=== PATIENT | male | born 1960 | race Caucasian/White ===

== ENCOUNTER 2017-04-07 17:58 | Emergency (ER) | payer BC, OTHER ==
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
[2017-04-07 18:23] VITALS: TEMP 98.2; BMI 35.3
[2017-04-07 18:41] VITALS: BP 126/83; PULSE 70
[2017-04-07 18:51] LABS: INR 1.13 (0.82-1.09); PROTHROMBIN TIME (PATIENT) 12.6 SEC (10.2-13.0)
[2017-04-07 18:53] LABS: BASOPHIL 0.3 % (0-2.0); EOSINOPHIL 3.1 % (0-4.5); MCH 29.9 pg (25.7-33.7); MCHC 34.5 g/dl (32.0-35.9); MEAN CELL VOLUME 86.7 fl (80-96); MEAN PLT VOLUME 8.5 fl (7.5-11.1); NEUTROPHILS 61.3 % (42.8-82.8); PLATELET COUNT 209 K/MM3 (134-434); RDW 12.7 % (11.9-15.9); WHITE BLOOD COUNT 6.9 K/mm3 (4.0-10.8)
[2017-04-07 18:57] LABS: ALBUMIN 4.2 g/dl (3.5-5.0); ALK PHOS 56 U/L (32-92); ANION GAP 8 (8-16); BILIRUBIN,TOTAL 0.5 mg/dl (0.2-1.0); CALCIUM 9.1 mg/dl (8.4-10.2); CO2 24 mmol/L (22-28); CREATININE 1.1 mg/dl (0.6-1.3); GLUCOSE,RANDOM 101 mg/dl (74-106); SGOT/AST 34 U/L (10-42); SGPT/ALT 28 U/L (10-40); TOT PROT 6.7 g/dl (6.4-8.3)
--- NOTE | 2017-04-07 19:04 | PDOC ---
*Physical Exam - Vital Signs Last Vital Signs Temp Pulse Resp BP Pulse Ox 98.2 F 70 15 126/83 97 04/07/17 18:01 04/07/17 18:40 04/07/17 18:40 04/07/17 18:40 04/07/17 18:40 ED Treatment Course - LABORATORY CBC & Chemistry Diagram: 04/07/17 18:20 04/07/17 18:20 - ADDITIONAL ORDERS Additional order review: Laboratory Results 04/07/17 04/07/17 18:20 18:20 PT with INR 12.6 INR 1.13 Sodium 135 L Potassium 3.3 L Chloride 103 Carbon Dioxide 24 Anion Gap 8 BUN 19 H D Creatinine 1.1 Creat Clearance w eGFR > 60 Random Glucose 101 Calcium 9.1 Total Bilirubin 0.5 D AST 34 D ALT 28 Alkaline Phosphatase 56 Total Protein 6.7 Albumin 4.2 04/07/17 18:20 RBC 4.99 MCV 86.7 MCHC 34.5 RDW 12.7 MPV 8.5 D Neutrophils % 61.3 Lymphocytes % 28.5 Monocytes % 6.8 Eosinophils % 3.1 Basophils % 0.3 Progress Note - Progress Note Progress Note: Care of this patient was transferred to al from Dr. Garrett at 1900 hrs. Patient is a 57-year-old male with history of hypertension and anxiety. Patient had an anxiety attack that was associated with some palpitations and a feeling of not feeling well. 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 Patient took his antianxiety medication here in the emergency room and now feels much better. Patient had a cardiogram that showed normal sinus rhythm at a rate of [address] abnormalities but no acute ST-T wave changes. Patient had a workup that was unremarkable including normal cardiac enzymes and troponin Patient will be discharged and follow-up with his primary care doctor *DC/Admit/Observation/Transfer Diagnosis at time of Disposition: Palpitations, Anxiety - Discharge Dispostion Disposition: HOME Condition at time of disposition: Stable - Patient Instructions Additional Instructions: Return to the emergency department immediately with ANY new, persistent or worsening symptoms. Continue any medications as previously prescribed by your physician. You should follow up with your primary doctor as soon as possible regarding today's emergency department visit. . Please make sure your doctor reviews the results of your emergency evaluation. Thank you for coming to the Emergency Department today for your care. It was a pleasure to see you today. Please note that your evaluation is INCOMPLETE until you follow-up with your doctor.
[2017-04-07 19:22] LABS: TROPONIN I < 0.03 ng/ml (0.00-0.05)
--- NOTE | 2017-04-08 10:48 | EKG ---
Test Reason : Blood Pressure : / mmHG Vent. Rate : 072 BPM Atrial Rate : 072 BPM P-R Int : 154 ms QRS Dur : 106 ms QT Int : 412 ms P-R-T Axes : 024 057 031 degrees QTc Int : 451 ms NORMAL SINUS RHYTHM NONSPECIFIC ST ABNORMALITY NO PREVIOUS ECGS AVAILABLE Confirmed by MD MIROSLAVA, JEN ([id number]) on 04/08/2017 10:48:19 AM Referred By: MANDEEP Confirmed By:JEN COLORADO MD
== END 2017-04-07 19:33 | disposition home or self-care (01) ==
LOC: SUPCPDRO 17:58 → FER 17:58
DX: R00.2 Palpitations (principal); F41.9 Anxiety disorder, unspecified; I10 Essential (primary) hypertension
CPT/HCPCS: 36415; 71020-TC; 80053; 84484; 85025; 85610; 93005; 99284-25

== ENCOUNTER 2017-06-27 12:53 | Emergency (ER) | payer OTHER ==
--- NOTE | 2017-06-27 12:59 | PDOC ---
History of Present Illness - General Chief Complaint: Pain Stated Complaint: STERNAL PAIN NON RADIATING Time Seen by Provider: 06/27/17 12:58 Past History - Past Medical History Allergies/Adverse Reactions: Allergies Allergy/AdvReac Type Severity Reaction Status Date / Time No Known Allergies Allergy Verified 06/27/17 12:56 Home Medications: Ambulatory Orders Alprazolam [Xanax] 0.5 mg PO TID PRN 04/07/17 Amlodipine Besylate [Norvasc -] 10 mg PO DAILY 04/07/17 Aspirin [Aspirin EC] 81 mg PO DAILY 04/07/17 Hydrochlorothiazide [Hctz -] 12.5 mg PO DAILY 04/07/17 Lisinopril 10 mg PO DAILY 04/07/17 Cyclobenzaprine HCl [Flexeril -] 10 mg PO TID #15 tablet 06/27/17 Ibuprofen 800 mg PO TID PRN #20 tablet 06/27/17 Anemia: No Asthma: No Cancer: No Cardiac Disorders: No CVA: No COPD: No CHF: No Dementia: No Diabetes: No GI Disorders: No Disorders: No HTN: Yes Hypercholesterolemia: No Liver Disease: No Psychiatric Problems: Yes (ANXIETY) Seizures: No Thyroid Disease: No - Surgical History Abdominal Surgery: No Appendectomy: No Cardiac Surgery: No Cholecystectomy: No Lung Surgery: No Neurologic Surgery: No Orthopedic Surgery: Yes (CLAVICAL SURGERY) - Suicide/Smoking/Psychosocial Hx Smoking Status: No Smoking History: Former smoker Have you smoked in the past 12 months: No Number of Cigarettes Smoked Daily: 0 Hx Alcohol Use: Yes Drug/Substance Use Hx: No Substance Use Type: Alcohol Hx Substance Use Treatment: No Cardiac Specific PMH - Complaint Specific PMHX Pacemaker: No *Physical Exam - Vital Signs Last Vital Signs Temp Pulse Resp BP Pulse Ox 98.4 F 86 16 130/64 100 06/27/17 12:54 06/27/17 12:54 06/27/17 12:54 06/27/17 12:54 06/27/17 12:54 ED Treatment Course - LABORATORY CBC & Chemistry Diagram: 06/27/17 13:27 06/27/17 13:30 - ADDITIONAL ORDERS Additional order review: Laboratory Results 06/27/17 13:30 Sodium 137 Potassium 3.6 Chloride 106 Carbon Dioxide 26 Anion Gap 5 L BUN 16 Creatinine 1.1 Creat Clearance w eGFR > 60 Random Glucose 113 H Calcium 9.0 Total Bilirubin 0.4 AST 24 D ALT 21 D Alkaline Phosphatase 56 Creatine Kinase 258 Creatine Kinase Index 1.0 CK-MB (CK-2) 2.6 Troponin I < 0.03 L Total Protein 6.3 L Albumin 4.0 06/27/17 13:27 RBC 5.22 MCV 88.3 MCHC 33.5 RDW 12.1 MPV 8.3 Neutrophils % 62.5 Lymphocytes % 27.3 Monocytes % 6.7 Eosinophils % 2.9 Basophils % 0.6 - Medications Given in the ED: ED Medications Discontinued Medications Generic Name Dose Route Start Last Admin Trade Name Freq PRN Reason Stop Dose Admin Cyclobenzaprine HCl 10 mg 06/27/17 13:41 06/27/17 14:35 Flexeril - PO 06/27/17 13:42 10 mg ONCE ONE Administration Ibuprofen 800 mg 06/27/17 13:41 06/27/17 14:35 Motrin - PO 06/27/17 13:42 800 mg ONCE ONE Administration Medical Decision Making - Medical Decision Making 06/27/17 16:31 EKG: Normal sinus rhythm 76/m. Normal axis and intervals. No ST-T wave changes. Normal EKG Labs including CBC, chemistries, and cardiac enzymes negative. Most likely costochondritis/chest wall pain. In no distress and minimal discomfort at discharge to follow-up as recommended. *DC/Admit/Observation/Transfer Diagnosis at time of Disposition: Costochondritis, acute - Discharge Dispostion Disposition: HOME Condition at time of disposition: Stable Admit: No - Prescriptions Prescriptions: Cyclobenzaprine HCl [Flexeril -] 10 mg PO TID #15 tablet Ibuprofen 800 mg PO TID PRN #20 tablet PRN Reason: Pain - Referrals - Patient Instructions Printed Discharge Instructions: DI for Costochondritis Additional Instructions: Return to ER if pain worsens or other serious symptoms develop such as shortness of breath, cough, fever, dizziness/lightheadedness, vertigo, nausea or perspiration. Otherwise follow-up with your primary physician in 3-5 days. - Post Discharge Activity
[2017-06-27 13:06] VITALS: BP 130/64; PULSE 86; TEMP 98.4; BMI 36.1
[2017-06-27 13:41] LABS: BASO % 0.6 % (0-2.0); EOS % 2.9 % (0-4.5); HEMOGLOBIN 15.4 GM/dl (11.7-16.9); LYMPH % 27.3 % (8-40); MCH 29.6 pg (25.7-33.7); MCHC 33.5 g/dl (32.0-35.9); MEAN CELL VOLUME 88.3 fl (80-96); MEAN PLT VOLUME 8.3 fl (7.5-11.1); MONO % 6.7 % (3.8-10.2); NEUT % 62.5 % (42.8-82.8); PLATELET COUNT 216 K/MM3 (134-434); RBC 5.22 M/mm3 (4.00-5.60); RDW 12.1 % (11.9-15.9); WHITE BLOOD COUNT 6.4 K/mm3 (4.0-10.8)
[2017-06-27] MEDS ORDERED: CYCLOBENZAPRINE HCL 10 MG TABLET (FP) PO ONE (13:41)
[2017-06-27] MEDS ORDERED: IBUPROFEN 400 MG TABLET (FP) PO ONE ×2 (13:41→14:31)
[2017-06-27 13:56] LABS: ALK PHOS 56 U/L (32-92); ANION GAP 5 (8-16); BILIRUBIN,TOTAL 0.4 mg/dl (0.2-1.0); BLOOD UREA NITROGEN 16 mg/dl (7-18); CHLORIDE 106 mmol/L (98-107); CO2 26 mmol/L (22-28); CREATININE 1.1 mg/dl (0.6-1.3); GLUCOSE,RANDOM 113 mg/dl (74-106); POTASSIUM 3.6 mmol/L (3.5-5.1); SGOT/AST 24 U/L (10-42); SGPT/ALT 21 U/L (10-40); SODIUM 137 mmol/L (136-145); TOT PROT 6.3 g/dl (6.4-8.3)
[2017-06-27] MEDS ORDERED: CYCLOBENZAPRINE HCL 10 MG TABLET (FP) ONE (14:31)
[2017-06-27 16:19] LABS: TROPONIN I (DFP) < 0.03 ng/ml (0.03-0.50)
--- NOTE | 2017-06-30 15:44 | EKG ---
Test Reason : Blood Pressure : / mmHG Vent. Rate : 076 BPM Atrial Rate : 076 BPM P-R Int : 150 ms QRS Dur : 096 ms QT Int : 382 ms P-R-T Axes : 026 053 050 degrees QTc Int : 429 ms NORMAL SINUS RHYTHM NORMAL ECG WHEN COMPARED WITH ECG OF 07-APR-2017 18:08, NO SIGNIFICANT CHANGE WAS FOUND Confirmed by THEO JADE MD ([id number]) on 06/30/2017 3:44:40 PM Referred By: Confirmed By:THEO JADE MD
== END 2017-06-27 16:45 | disposition home or self-care (01) ==
LOC: FER 12:53
DX: F41.9 Anxiety disorder, unspecified (principal); Z87.891 Personal history of nicotine dependence; I10 Essential (primary) hypertension
CPT/HCPCS: 36415; 80053; 82550; 82553; 84484; 85025; 93005; 99282-25

== ENCOUNTER 2018-06-03 14:14 | Emergency (ER) | payer OTHER ==
[2018-06-03 14:37] VITALS: TEMP 98; BMI 37.7
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
[2018-06-03 16:11] VITALS: BP 139/92; PULSE 79
== END 2018-06-03 16:00 | disposition home or self-care (01) ==
LOC: FER 14:14
CPT/HCPCS: 99283-25

== ENCOUNTER 2018-08-22 23:07 | Emergency (ER) | payer OTHER ==
--- NOTE | 2018-08-22 23:10 | PDOC ---
History of Present Illness - General History Source: Patient Exam Limitations: No Limitations - History of Present Illness Initial Comments: 08/22/18 23:19 A portion of this note was documented by scribe services under my direction. I have reviewed the details of the note, within reason, and agree with the documentation with the following case summary and management plan written by me. Patient treated in the ED. Nursing notes are reviewed and incorporated into the medical decision-making. Vital signs reviewed. Assessment and plan: This is a 58-year-old male who used a hair dye for men to dye his hair this evening and had an ALLERGIC reaction to it. Patient comes in complaining of itching and erythema of the scalp. Patient did have some erythema of the scalp Patient had no difficulty breathing or any other systemic symptoms of an ALLERGIC reaction.. Patient given Benadryl and prednisone and discharged home.. <Francisca Tinoco I - Last Filed: 08/22/18 23:19> - History of Present Illness Initial Comments: 08/22/18 23:22 The patient is a 58-year-old male who presents to the emergency department with an allergic reaction. The patient reports he dyed his hair for a job interview and since using that product he started to develop burning and itching to the scalp. The patient reports he immediately washed off the dye, without relief. The patient reports associated symptoms of flaky skin over the right ear. Denies shortness of breath or other symptoms. Denies prior use of a similar product. PAST MEDICAL HISTORY: HTN and anxiety PAST SURGICAL HISTORY: Clavicle sx FAMILY HISTORY: no pertinent history SOCIAL HISTORY: Pt denies the use of tobacco, alcohol or drug use. MEDICATIONS: reviewed ALLERGIES: As per nursing notes General: No fevers or chills, no weakness, no weight loss HEENT: +itchy and burning scalp. No change in vision. No sore throat,. No ear pain CardioVascular: No chest pain or shortness of breath Respiratory:No cough, or wheezing. Gastrointestinal: no nausea, vomiting, diarrhea or constipation, No rectal bleeding Genitourinary: No dysuria, hematuria, or frequency Musculoskeletal: No joint or muscle pain or swelling Neurologic: No headache, vertigo, dizziness or loss of consciousness Psychiatric: nor depression Skin: No rashes or easy bruising Endocrine: no increased thirst or abnormal weight change Allergic: no skin or latex allergy All other systems reviewed and normal GENERAL: The patient is awake, alert, and fully oriented, in no acute distress. HEAD: Normal with no signs of trauma. EYES: Pupils equal, round and reactive to light, extraocular movements intact, sclera anicteric, conjunctiva clear. EXTREMITIES: Normal range of motion, no edema. NEUROLOGICAL: Normal speech, normal gait. PSYCH: Normal mood, normal affect. SKIN: +mild erythema to the scalp especially at the hairline with a rash, no blisterning. Warm, Dry, normal turgor, no lesions noted. Documentation prepared by Tamela Merrill, acting as medical transcription for Francisca Tinoco MD. <Tamela Merrill - Last Filed: 08/22/18 23:23> - General Chief Complaint: Redness To Affected Area Stated Complaint: SCALP ITCHY AND BURNING Time Seen by Provider: 08/22/18 23:09 Past History - Past Medical History Anemia: No Asthma: No Cancer: No Cardiac Disorders: No CVA: No COPD: No CHF: No Dementia: No Diabetes: No GI Disorders: No Disorders: No HTN: Yes Hypercholesterolemia: No Liver Disease: No Psychiatric Problems: Yes (ANXIETY) Seizures: No Thyroid Disease: No - Surgical History Abdominal Surgery: No Appendectomy: No Cardiac Surgery: No Cholecystectomy: No Lung Surgery: No Neurologic Surgery: No Orthopedic Surgery: Yes (CLAVICAL SURGERY) - Suicide/Smoking/Psychosocial Hx Smoking Status: No Smoking History: Never smoked Have you smoked in the past 12 months: No Number of Cigarettes Smoked Daily: 0 Hx Alcohol Use: No Drug/Substance Use Hx: No Substance Use Type: Alcohol Hx Substance Use Treatment: No <Francisca Tinoco I - Last Filed: 08/22/18 23:19> <Tamela Merrill - Last Filed: 08/22/18 23:23> - Past Medical History Allergies/Adverse Reactions: Allergies Allergy/AdvReac Type Severity Reaction Status Date / Time No Known Allergies Allergy Verified 06/03/18 14:16 Home Medications: Ambulatory Orders Lisinopril 10 mg PO DAILY 04/07/17 Amlodipine Besylate 10 mg PO DAILY 08/22/18 Methylprednisolone [Medrol Dose Lukasz] 4 mg PO ASDIR #21 tablet 08/22/18 *Physical Exam - Vital Signs Last Vital Signs Temp Pulse Resp BP Pulse Ox 97.7 F 73 18 146/89 99 08/22/18 23:10 08/22/18 23:10 08/22/18 23:10 08/22/18 23:10 08/22/18 23:10 <Tamela Merrill - Last Filed: 08/22/18 23:23> Moderate Sedation - Procedure Monitoring Vital Signs: Procedure Monitoring Vital Signs Temperature 97.7 F 08/22/18 23:10 Pulse Rate 73 08/22/18 23:10 Respiratory Rate 18 08/22/18 23:10 Blood Pressure 146/89 08/22/18 23:10 O2 Sat by Pulse Oximetry (%) 99 08/22/18 23:10 <Tamela Merrill - Last Filed: 08/22/18 23:23> ED Treatment Course - Medications Given in the ED: ED Medications Discontinued Medications Generic Name Dose Route Start Last Admin Trade Name Stewart PRN Reason Stop Dose Admin Diphenhydramine HCl 25 mg 08/22/18 23:18 08/22/18 23:21 Benadryl Injection - IVPUSH 08/22/18 23:19 25 mg ONCE ONE Administration Prednisone 40 mg 08/22/18 23:18 08/22/18 23:21 Deltasone - PO 08/22/18 23:19 40 mg ONCE ONE Administration <Tamela Merrill - Last Filed: 08/22/18 23:23> *DC/Admit/Observation/Transfer - Discharge Dispostion Decision to Admit order: No <Francisca Tinoco I - Last Filed: 08/22/18 23:19> <Tamela Merrill - Last Filed: 08/22/18 23:23> Diagnosis at time of Disposition: Allergic reaction to chemical substance - Discharge Dispostion Condition at time of disposition: Stable - Prescriptions Prescriptions: Methylprednisolone [Medrol Dose Lukasz] 4 mg PO ASDIR #21 tablet - Referrals Referrals: oLco Mitchell MD [Primary Care Provider] - - Patient Instructions Additional Instructions: I sent a prescription for a Medrol Dosepak to your pharmacy get it filled tomorrow start tomorrow and instructions as per the pack. In addition to that you can also take Benadryl one tablet as often as every 4-6 hours if needed for additional itching. Return to the emergency department immediately with ANY new, persistent or worsening symptoms. Continue any medications as previously prescribed by your physician. You should follow up with your primary doctor as soon as possible regarding today's emergency department visit. . Please make sure your doctor reviews the results of your emergency evaluation. Thank you for coming to the Emergency Department today for your care. It was a pleasure to see you today. Please note that your evaluation is INCOMPLETE until you follow-up with your doctor. - Post Discharge Activity
[2018-08-22 23:13] VITALS: BP 146/89; PULSE 73; TEMP 97.7; BMI 37.5
[2018-08-22] MEDS ORDERED: predniSONE 20 MG TABLET (UD) PO ONE (23:18)
[2018-08-22] MEDS ORDERED: diphenhydrAMINE HCL 25 MG CAPSULE (FP) PO ONE (23:19)
[2018-08-22] MEDS ORDERED: predniSONE 20 MG TABLET (UD) ONE (23:19)
== END 2018-08-22 23:29 | disposition home or self-care (01) ==
LOC: FER 23:07
PROC: 3E0337Z Introduction of Electrolytic and Water Balance Substance into Peripheral Vein, Percutaneous Approach (ICD-10-PCS; principal; 2018-08-22)
DX: T65.891A Toxic effect of other specified substances, accidental (unintentional), initial encounter (principal); T78.49XA Other allergy, initial encounter; Y92.89 Other specified places as the place of occurrence of the external cause; X58.XXXA Exposure to other specified factors, initial encounter
CPT/HCPCS: 99281-25

== ENCOUNTER 2019-01-28 11:12 | Emergency (ER) | payer OTHER | END 2019-01-28 14:40 | disposition home or self-care (01) | LOC: FER 11:12 ==

== ENCOUNTER 2019-12-11 22:42 | Emergency (ER) | payer OTHER ==
[2019-12-11 22:49] VITALS: BP 152/96; PULSE 86; TEMP 98.2; BMI 38.7
== END 2019-12-11 23:15 | disposition home or self-care (01) ==
LOC: FER 22:42
DX: F41.9 Anxiety disorder, unspecified (principal)
CPT/HCPCS: 93005; 99283-25